=== PATIENT | male | born 1970 | race American Indian/Alaskan Native ===

== ENCOUNTER 2019-10-18 19:08 | Emergency (ER) | payer SELFPAY ==
[2019-10-18] MEDS ORDERED: ASPIRIN 325 MG TAB PO ONE (20:05)
--- NOTE | 2019-10-18 20:36 | XRay Report ---
CHEST 1 VIEW INDICATION / CLINICAL INFORMATION: Chest Pain. COMPARISON: None available. FINDINGS: SUPPORT DEVICES: None. HEART / MEDIASTINUM: No significant abnormality. LUNGS / PLEURA: No significant pulmonary or pleural abnormality. No pneumothorax. ADDITIONAL FINDINGS: No significant additional findings. IMPRESSION: 1. No acute findings. Signer Name: Denis Menendez MD Signed: 10/18/2019 8:32 PM Workstation Name: [id number]
[2019-10-18 21:56] LABS: Basophils # (Auto) 0.1 K/mm3 (0.0-0.1); Basophils % (Auto) 0.5 % (0.0-1.8); Eosinophils # (Auto) 0.1 K/mm3 (0.0-0.4); Eosinophils % (Auto) 0.6 % (0.0-4.3); Hematocrit 45.9 % (35.5-45.6); Hemoglobin 15.3 gm/dl (11.8-15.2); Lymphocytes # (Auto) 2.1 K/mm3 (1.2-5.4); Lymphocytes % (Auto) 17.8 % (13.4-35.0); Mean Corpuscular HGB Conc 33 % (32-34); Mean Corpuscular Volume 86 fl (84-94); Monocytes # (Auto) 0.7 K/mm3 (0.0-0.8); Monocytes % (Auto) 5.7 % (0.0-7.3); Platelet Count 203 K/mm3 (140-440); Red Blood Count 5.36 M/mm3 (3.65-5.03); Red Cell Distribution Width 14.4 % (13.2-15.2)
[2019-10-18 22:17] LABS: BUN/Creatinine Ratio 13; Blood Urea Nitrogen 14 mg/dL (9-20); Calcium 9.7 mg/dL (8.4-10.2); Hemolysis Index 9
--- NOTE | 2019-10-19 01:05 | Emergency Department Report ---
ED General Adult HPI - General Chief complaint: High BP Stated complaint: BLOOD PRESSURE HIGH, TINGLY IN HAND Time Seen by Provider: 10/18/19 22:53 Source: patient Mode of arrival: Ambulatory Limitations: No Limitations - History of Present Illness Initial comments: 49-year-old male with a past medical history of hypertension and left hand surgery status post traumatic injury presents to Hospital complaining initially of tingling to left hand today as per triage. Upon my evaluation patient tells me the left hand tingling is chronic secondary to traumatic surgery 2 years ago. Patient states he is concerned because he was at a constitution party with friends yesterday and unknowingly smoked laced with cocaine. Patient states he's had intermittent palpitations and diaphoresis. He denies chest pain, shortness of breath, or headache. Symptoms are improved since arrival. Patient has been compliant with Losartan 100 mg daily. States he saw his primary care doctor earlier this week and systolic blood pressures was in the 120s. Severity scale (0 -10): 2 - Related Data Previous Rx's Medication Instructions Recorded Last Taken Type Amoxicillin [Trimox CAP] 500 mg PO Q8H #30 capsule 10/15/13 Unknown Rx Ibuprofen [Motrin] 800 mg PO TID PRN #30 tablet 10/15/13 Unknown Rx traMADoL [Ultram 50 MG tab] 50 mg PO Q6HR PRN #8 tablet 10/15/13 Unknown Rx Allergies Allergy/AdvReac Type Severity Reaction Status Date / Time No Known Allergies Allergy Verified 10/18/19 23:01 ED Review of Systems ROS: Stated complaint: BLOOD PRESSURE HIGH, TINGLY IN HAND Other details as noted in HPI Comment: All other systems reviewed and negative ED Past Medical Hx - Past Medical History Previous Medical History?: Yes Hx Hypertension: Yes - Surgical History Past Surgical History?: Yes Additional Surgical History: Left Hand surgery 2017 - Social History Smoking Status: Current Every Day Smoker Substance Use Type: Marijuana - Medications Home Medications: Home Medications Medication Instructions Recorded Confirmed Last Taken Type Amoxicillin [Trimox CAP] 500 mg PO Q8H #30 capsule 10/15/13 Unknown Rx Ibuprofen [Motrin] 800 mg PO TID PRN #30 tablet 10/15/13 Unknown Rx traMADoL [Ultram 50 MG tab] 50 mg PO Q6HR PRN #8 tablet 10/15/13 Unknown Rx ED Physical Exam - General Limitations: No Limitations - Other Other exam information: General: No limitations, patient is alert in no acute distress Head exam: Atraumatic, normocephalic Eyes exam: Normal appearance ENT: Moist mucous membrane Neck exam: Normal inspection, full range of motion Respiratory exam: Clear to auscultation bilateral, no wheezes, rales, crackles Cardiovascular: Normal rate and rhythm Abdomen: Soft, nondistended, and nontender, with normal bowel sounds, no rebound, or guarding, Extremity: 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 Decreased sensation to dorsum of hand chronic as per patient. Weak left hand [employer] compared to the right chronic as per patient. Back: Normal Inspection Neurologic: Alert, oriented x3, speech clear, weak hand [employer] and decreased sensation to left hand. 5/5 strength and normal sensation to other extremities. Psychiatric: Normal mood, affect Skin: No diaphoresis ED Course Vital Signs 10/18/19 10/18/19 10/18/19 19:13 22:33 23:26 Temperature 98.7 F 98.2 F 98.6 F Pulse Rate 110 H 82 80 Respiratory 18 16 16 Rate Blood Pressure 159/101 Blood Pressure 156/82 140/65 [Left] O2 Sat by Pulse 97 97 97 Oximetry ED Medical Decision Making - Lab Data Result diagrams: 10/18/19 21:31 10/18/19 21:31 Lab Results 10/18/19 10/18/19 Range/Units 21:31 21:31 WBC 11.7 H (4.5-11.0) K/mm3 RBC 5.36 H (3.65-5.03) M/mm3 Hgb 15.3 H (11.8-15.2) gm/dl Hct 45.9 H (35.5-45.6) % MCV 86 (84-94) fl MCH 29 (28-32) pg MCHC 33 (32-34) % RDW 14.4 (13.2-15.2) % Plt Count 203 (140-440) K/mm3 Lymph % (Auto) 17.8 (13.4-35.0) % Cooper % (Auto) 5.7 (0.0-7.3) % Eos % (Auto) 0.6 (0.0-4.3) % Baso % (Auto) 0.5 (0.0-1.8) % Lymph # 2.1 (1.2-5.4) K/mm3 Cooper # 0.7 (0.0-0.8) K/mm3 Eos # 0.1 (0.0-0.4) K/mm3 Baso # 0.1 (0.0-0.1) K/mm3 Seg Neutrophils % 75.4 H (40.0-70.0) % Seg Neutrophils # 8.9 H (1.8-7.7) K/mm3 Sodium 141 (137-145) mmol/L Potassium 4.2 (3.6-5.0) mmol/L Chloride 104.5 (98-107) mmol/L Carbon Dioxide 23 (22-30) mmol/L Anion Gap 18 mmol/L BUN 14 (9-20) mg/dL Creatinine 1.1 (0.8-1.5) mg/dL Estimated GFR > 60 ml/min BUN/Creatinine Ratio 13 % Glucose 105 H (75-100) mg/dL Calcium 9.7 (8.4-10.2) mg/dL Troponin T < 0.010 (0.00-0.029) ng/mL - EKG Data -: EKG Interpreted by Me (pac's) EKG shows normal: sinus rhythm, ST-T waves (no stemi) Rate: normal (76) - Radiology Data Radiology results: report reviewed CHEST 1 VIEW INDICATION / CLINICAL INFORMATION: Chest Pain. COMPARISON: None available. FINDINGS: SUPPORT DEVICES: None. HEART / MEDIASTINUM: No significant abnormality. LUNGS / PLEURA: No significant pulmonary or pleural abnormality. No pneumothorax. ADDITIONAL FINDINGS: No significant additional findings. IMPRESSION: 1. No acute findings. - Medical Decision Making pt stable without symptoms in the ED. Improvement in initial tachycardia without eating treatment. EKG shows PACs with normal rate and rhythm. Patient will be discharged home to follow up with PMD - Differential Diagnosis drug reaction, anxiety, radiculopathy Critical Care Time: No Critical care attestation.: If time is entered above; I have spent that time in minutes in the direct care of this critically ill patient, excluding procedure time. ED Disposition Clinical Impression: Unintentional poisoning by cocaine, Palpitations, Cocaine adverse reaction Disposition: DC- TO HOME OR SELFCARE Is pt being admited?: No Condition: Stable Instructions: Cocaine Abuse (ED), Palpitations (ED) Additional Instructions: Follow-up with your doctor or with the doctor/clinic provided. Return if symptoms worsen as indicated by your discharge instructions. Referrals: your, doctor [Other] - 3-5 Days Time of Disposition: 01:09
[2019-10-19 01:45] VITALS: BP 140/78
== END 2019-10-19 01:52 | disposition home or self-care (01) ==
LOC: ED 19:08
DX: T40.5X1A Poisoning by cocaine, accidental (unintentional), initial encounter (principal); R00.2 Palpitations; I10 Essential (primary) hypertension; F17.200 Nicotine dependence, unspecified, uncomplicated; F12.10 Cannabis abuse, uncomplicated; Z79.899 Other long term (current) drug therapy; Y92.89 Other specified places as the place of occurrence of the external cause
CPT/HCPCS: 36415; 71045; 80048; 84484; 85025; 93005; 93010

== ENCOUNTER 2019-11-12 05:32 | Emergency (ER) | payer BC, OTHER ==
[2019-11-12 05:38] VITALS: BP 142/86
--- NOTE | 2019-11-12 07:43 | Emergency Department Report ---
Minor Respiratory - HPI Chief Complaint: Upper Respiratory Infection Stated Complaint: FLU SX Time Seen by Provider: 11/12/19 07:43 Duration: 5 Days Pain Location: Chest Severity: mild, moderate Minor Respiratory: Yes Rhinorrhea, Yes Sore Throat, Yes Able to Tolerate Fluids, Yes Cough, No Ear Pain, No Sick Contacts, No Hemoptysis, No Chest Pain, No Shortness of Breath, No Fever Other History: Patient is a 49-year-old -[place] male who comes to the emergency room today complaining of a persistent cough for over a. He states that he is tried [id number] medications but without relief. He feels like he has mucus stuck in his chest. He states that he has been told in the past he had asthma. Given his persistent symptoms and failed [id number] management and need to rule out pneumonia. Patient noted to be tachycardic in triage. On exam heart rate down to 90. ED Review of Systems ROS: Stated complaint: FLU SX Other details as noted in HPI Comment: All other systems reviewed and negative ED Past Medical Hx - Past Medical History Previous Medical History?: Yes Hx Hypertension: Yes Hx Asthma: Yes - Surgical History Past Surgical History?: Yes Additional Surgical History: Left Hand surgery 2017 - Family History Family history: no significant - Social History Smoking Status: Never Smoker Substance Use Type: Alcohol, Marijuana - Medications Home Medications: Home Medications Medication Instructions Recorded Confirmed Last Taken Type Albuterol INH(or & Nicu Only) 2 puff IH QID PRN #1 inhalation 11/12/19 Unknown Rx [ProAir HFA Inhaler] Azithromycin [Zithromax Z-JENNIFER] 250 mg PO DAILY #6 tablet 11/12/19 Unknown Rx Benzonatate [Tessalon Perles] 100 mg PO Q12H PRN #20 capsule 11/12/19 Unknown Rx Cetirizine HCl [ZyrTEC] 10 mg PO DAILY #30 capsule 11/12/19 Unknown Rx Fluticasone [Flonase] 1 spray NS QDAY #1 bottle 11/12/19 Unknown Rx predniSONE [Deltasone] 20 mg PO DAILY #5 tablet 11/12/19 Unknown Rx Minor Respiratory Exam - Exam General: Vital signs noted. No distress. Alert and acting appropriately. HEENT: Yes Moist Mucous Membranes, No Pharyngeal Erythema, No Pharyngeal Exudates, No Rhinorrhea, No Conjuctival Injection, No Frontal Tenderness, No Maxillary Tenderness Ear: Neither TM Bulge, Neither TM Erythema, Neither EAC Pain, Neither EAC Discharge Neck: Yes Supple, No Adenopathy Lungs: Yes Good Air Exchange, Yes Wheezes, Yes Ronchi, Yes Cough, No Stridor, No Labored Respirations, No Retractions, No Use of Accessory Muscles, No Other Abnormal Lung Sounds Heart: Yes Regular, No Murmur (hr 90) Abdomen: Yes Normal Bowel Sounds, No Tenderness, No Peritoneal Signs Skin: No Rash, No Edema Neurologic: Alert and oriented, no deficits. Musculoskeletal: Unremarkable. ED Course Vital Signs 11/12/19 05:35 Temperature 99.1 F Pulse Rate 122 H Respiratory 18 Rate Blood Pressure 142/86 O2 Sat by Pulse 92 Oximetry ED Medical Decision Making - Radiology Data Radiology results: report reviewed, image reviewed - Medical Decision Making X-ray noted to be without consolidation. Patient medicated with prednisone and DuoNeb in ER. He did report relief of symptoms at that time. Patient is being discharged home with an outpatient plan of care including PCP follow-up in 48 hours to make sure he is feeling better. Vital Signs 11/12/19 11/12/19 05:35 08:20 Temperature 99.1 F Pulse Rate 122 H Pulse Rate [ 98 H Anterior Bilateral Throughout] Respiratory 18 Rate Respiratory 18 Rate [Anterior Bilateral Throughout] Blood Pressure 142/86 O2 Sat by Pulse 92 Oximetry - Differential Diagnosis Pneumonia, URI, bronchitis. Influenza. Critical care attestation.: If time is entered above; I have spent that time in minutes in the direct care of this critically ill patient, excluding procedure time. ED Disposition Clinical Impression: Bronchitis Disposition: DC-01 TO HOME OR SELFCARE Is pt being admited?: No Does the pt Need Aspirin: No Condition: Stable Instructions: Acute Bronchitis (ED) Additional Instructions: Stay well-hydrated with water. Motrin or Tylenol for pain or fever Meds as ordered today Follow-up with primary care in 48 hours to make sure you are getting better Diet and activity as tolerated Prescriptions: predniSONE [Deltasone] 20 mg PO DAILY #5 tablet Fluticasone [Flonase] 1 spray NS QDAY #1 bottle Albuterol INH(or & Nicu Only) [ProAir HFA Inhaler] 2 puff IH QID PRN #1 inhalation PRN Reason: Shortness Of Breath Benzonatate [Tessalon Perles] 100 mg PO Q12H PRN #20 capsule PRN Reason: Cough Azithromycin [Zithromax Z-JENNIFER] 250 mg PO DAILY #6 tablet Cetirizine HCl [ZyrTEC] 10 mg PO DAILY #30 capsule Referrals: PASCUAL JOVEL MD [Staff Physician] - 3-5 Days Time of Disposition: 08:14
[2019-11-12] MEDS ORDERED: predniSONE 20 MG TAB PO ONE (07:46)
[2019-11-12] MEDS ORDERED: ALBUTEROL 2.5 MG/3 ML NEBU IH ONE (07:46)
--- NOTE | 2019-11-12 08:12 | XRay Report ---
CHEST 2 VIEWS INDICATION: cough. COMPARISON: 10/18/2019 FINDINGS: Support devices: None. Heart: Within normal limits. Pulmonary vasculature: Normal. Lungs/pleura: No acute air space or interstitial disease. No pneumothorax. Additional findings: None. IMPRESSION: 1. No acute findings. Signer Name: Maged Huber MD Signed: 11/12/2019 8:07 AM Workstation Name: [id number]
== END 2019-11-12 08:32 | disposition home or self-care (01) ==
LOC: ED 05:32
DX: J45.909 Unspecified asthma, uncomplicated (principal); I10 Essential (primary) hypertension; F12.90 Cannabis use, unspecified, uncomplicated; Z79.899 Other long term (current) drug therapy; Z98.890 Other specified postprocedural states
CPT/HCPCS: 71046; 94640; 99283; J7512; 94644